=== PATIENT | female | born 1965 | race Caucasian/White ===

== ENCOUNTER 2021-05-29 11:57 | Inpatient (IN) | payer OTHER ==
[~2021-05-29] VITALS: Ht 149.9 cm; Wt 81.6 kg
[2021-05-29] MEDS ORDERED: ONDANSETRON HCL INJ 2MG/ML 2ML 2 MG/ML VIAL IV STA ×2 (12:06→16:54)
[2021-05-29] MEDS ORDERED: SODIUM CHLORIDE 0.9% 1000ML 2,500 ML IV SCH (12:15)
[2021-05-29 12:18] LABS: BASOPHILS # (AUTO) 0.1 (0.0-0.1); BASOPHILS % 0.3 % (0.0-1.0); HEMATOCRIT 29.4 % (34.2-44.1); HEMOGLOBIN 9.4 g/dL (12.0-16.0); LYMPHOCYTES # (AUTO) 2.7 (1.0-3.2); LYMPHOCYTES % 14.3 % (18.0-39.1); MEAN CORPUSCULAR HEMOGLOBIN 29.7 pg (28-32); MONOCYTES # (AUTO) 0.5 (0.2-0.8); MONOCYTES % 2.9 % (4.4-11.3); NEUTROPHILS # (AUTO) 15.4 (2.1-6.9); NEUTROPHILS % 81.7 % (38.7-80.0); PLATELET COUNT 322 x10e3/uL (140-360); RED BLOOD COUNT 3.16 x10e6/uL (3.6-5.1); RED CELL DISTRIBUTION WIDTH 13.2 % (11.7-14.4)
[2021-05-29 12:42] LABS: ALBUMIN 3.4 g/dL (3.5-5.0); ALBUMIN/GLOBULIN RATIO 1.3 (0.8-2.0); ANION GAP 18.2 mmol/L (8-16); CALCIUM 8.5 mg/dL (8.4-10.2); CREATININE, SERUM 0.85 mg/dL (0.57-1.11); POTASSIUM 4.2 mmol/L (3.5-5.1)
[2021-05-29] MEDS ORDERED: CEFEPIME 2 GM in SODIUM CHLORIDE 0.9% 100 ML IV ONE (12:45)
[2021-05-29] MEDS ORDERED: Vancomycin IV 1 GM in SODIUM CHLORIDE 0.9% 250ML 250 ML IV ONE (12:45)
[2021-05-29 12:49] LABS: CLARITY,URINE CLEAR (CLEAR); COLOR,URINE YELLOW (YELLOW)
[2021-05-29 12:50] LABS: KETONES,URINE TRACE (NEGATIVE); LEUKOCYTE ESTERASE ,URINE NEGATIVE (NEGATIVE); NITRITE,URINE NEGATIVE (NEGATIVE); PROTEIN,URINE DIPSTICK NEGATIVE (NEGATIVE); URINE UROBILINOGEN 0.2 mg/dL (0.2 - 1)
[2021-05-29 13:02] LABS: BACTERIA,URINE MANY /HPF; EPITHELIAL CELLS,URINE FEW /LPF
[2021-05-29] MEDS ORDERED: IOPAMIDOL 370 MG/ML 200 ML INFUS..BTL INJ ONE (14:19)
[2021-05-29] MEDS ORDERED: SODIUM CHLORIDE 0.9% 50ML 50 ML ONE (14:19)
[2021-05-29] MEDS ORDERED: KETOROLAC TROMETHAMINE 30 MG/ML VIAL IV STA (14:33)
[2021-05-29] MEDS ORDERED: FENTANYL CITRATE/PF 100MCG/2 ML INJ IV ONE (17:00)
[2021-05-29] MEDS ORDERED: MORPHINE SULFATE INJ 4 MG/ML INJ 1ML IV ONE (17:00)
[2021-05-29 18:48] VITALS: BP 104/57
[2021-05-29 19:55] VITALS: BP 104/57
[2021-05-29 20:00] VITALS: BP 101/56
[2021-05-29 20:30] VITALS: BP 101/56
[2021-05-29] MEDS ORDERED: METOPROLOL TARTRATE 25 MG TAB PO SCH (21:00)
[2021-05-29] MEDS ORDERED: Vancomycin IV 1.25 GM in SODIUM CHLORIDE 0.9% 250ML 250 ML IV SCH (21:30)
[2021-05-29] MEDS: SODIUM CHLORIDE 0.9% 1000ML 1,000 ML IV SCH (21:42)
[2021-05-29] MEDS: MEROPENEM 500 MG in SODIUM CHLORIDE 0.9% 50ML 50 ML IV SCH (21:42)
[2021-05-29] MEDS: Pantoprazole IV 40 MG in SODIUM CHLORIDE 0.9% 50ML 50 ML IV SCH (21:45)
[2021-05-29] MEDS: MIDODRINE HCL 5 MG TABLET PO SCH (21:45)
[2021-05-30] VITALS (9 sets, daily range): BP systolic 84–124; BP diastolic 39–99
[2021-05-30 00:22] LABS: % IRON SATURATION 91 % (15-50); IRON 232 ug/dL (50-170); TOTAL IRON BINDING CAPACITY 256 ug/dL (261-478); TRANSFERRIN 183 mg/dL (180-382)
[2021-05-30] MEDS ORDERED: DICYCLOMINE HCL 20 MG TAB PO ONE (01:15)
[2021-05-30] MEDS ORDERED: DIPHENOXYLATE/ATROPINE TAB PO ONE (01:15)
[2021-05-30] MEDS: Pantoprazole IV 40 MG in SODIUM CHLORIDE 0.9% 50ML 50 ML IV SCH ×5 (01:45→21:45)
[2021-05-30] MEDS ORDERED: Vancomycin IV 1 GM in SODIUM CHLORIDE 0.9% 250ML 250 ML IV SCH (02:00)
[2021-05-30] MEDS ORDERED: Vancomycin IV 1.25 GM in SODIUM CHLORIDE 0.9% 250ML 250 ML IV SCH (02:00)
[2021-05-30] MEDS ORDERED: VANCOMYCIN HCL 1GM/NS 250 ML BAG IV SCH (02:15)
[2021-05-30] MEDS ORDERED: METOCLOPRAMIDE HCL 10 MG/2ML VIAL IV STA (02:21)
[2021-05-30] MEDS: SODIUM CHLORIDE 0.9% 1000ML 1,000 ML IV SCH ×4 (06:42→22:00)
[2021-05-30] MEDS ORDERED: SODIUM CHLORIDE 0.9% 500ML 500 ML IV ONE ×2 (10:41→10:45)
[2021-05-30] MEDS: MIDODRINE HCL 5 MG TABLET PO SCH ×3 (10:57→16:00)
[2021-05-30] MEDS: DICYCLOMINE HCL 20 MG TAB PO SCH ×3 (10:57→23:00)
[2021-05-30] MEDS: METOCLOPRAMIDE HCL 10 MG/2ML VIAL IV SCH ×3 (10:57→22:00)
[2021-05-30] MEDS: MEROPENEM 500 MG in SODIUM CHLORIDE 0.9% 50ML 50 ML IV SCH ×2 (10:57→23:00)
[2021-05-30 13:44] LABS: BASOPHILS % 0.3 % (0.0-1.0); EOSINOPHILS # (AUTO) 0.1 (0.0-0.4); EOSINOPHILS % 0.7 % (0.0-6.0); LYMPHOCYTES # (AUTO) 2.9 (1.0-3.2); LYMPHOCYTES % 25.5 % (18.0-39.1); MEAN CORPUSCULAR HEMOGLOBIN 30.4 pg (28-32); MEAN CORPUSCULAR HGB CONC 31.4 g/dL (31-35); MEAN CORPUSCULAR VOLUME 96.9 fL (81-99); MONOCYTES # (AUTO) 0.6 (0.2-0.8); MONOCYTES % 4.9 % (4.4-11.3); NEUTROPHILS # (AUTO) 7.8 (2.1-6.9); PLATELET COUNT 187 x10e3/uL (140-360); RED BLOOD COUNT 1.61 x10e6/uL (3.6-5.1); RED CELL DISTRIBUTION WIDTH 14.5 % (11.7-14.4)
[2021-05-30 13:54] LABS: HEMATOCRIT 15.6 % (34.2-44.1); HEMOGLOBIN 4.9 g/dL (12.0-16.0)
[2021-05-30] MEDS ORDERED: SODIUM CHLORIDE 0.9% 1000ML 1,000 ML IV ONE (14:15)
[2021-05-30] MEDS ORDERED: SODIUM CHLORIDE 0.9% 250ML 250 ML IV ONE (14:15)
[2021-05-30 15:13] LABS: HEMATOCRIT 15.6 % (34.2-44.1); HEMOGLOBIN 4.8 g/dL (12.0-16.0)
[2021-05-30 15:18] LABS: INR 1.15; PROTHROMBIN TIME 14.9 seconds (11.9-14.5)
[2021-05-30 15:46] LABS: ANION GAP 10.9 mmol/L (8-16); CALCIUM 8.1 mg/dL (8.4-10.2); CREATININE, SERUM 0.82 mg/dL (0.57-1.11); POTASSIUM 3.9 mmol/L (3.5-5.1)
[2021-05-30] MEDS ORDERED: NOREPINEPHRINE 8 MG/D5W 250 ML 250 ML ONE (20:09)
[2021-05-30] MEDS: ONDANSETRON HCL INJ 2MG/ML 2ML 2 MG/ML VIAL IV PRN (22:00)
[2021-05-31] VITALS (31 sets, daily range): BP systolic 85–136; BP diastolic 36–96
[2021-05-31 00:18] LABS: HEMOGLOBIN 6.9 g/dL (12.0-16.0)
[2021-05-31 00:32] LABS: ANION GAP 11.2 mmol/L (8-16); CALCIUM 7.7 mg/dL (8.4-10.2); CREATININE, SERUM 0.77 mg/dL (0.57-1.11); POTASSIUM 4.2 mmol/L (3.5-5.1)
[2021-05-31] MEDS: ACETAMINOPHEN 325 MG TAB PO PRN ×2 (01:17→10:22)
[2021-05-31] MEDS: SODIUM CHLORIDE 0.9% 1000ML 1,000 ML IV SCH ×7 (02:00→15:14)
[2021-05-31] MEDS: Pantoprazole IV 40 MG in SODIUM CHLORIDE 0.9% 50ML 50 ML IV SCH ×5 (02:45→23:55)
[2021-05-31] MEDS: DICYCLOMINE HCL 20 MG TAB PO SCH ×4 (03:00→20:28)
[2021-05-31] MEDS: METOCLOPRAMIDE HCL 10 MG/2ML VIAL IV SCH ×4 (03:00→20:28)
[2021-05-31 04:31] LABS: HEMATOCRIT 25.3 % (34.2-44.1); HEMOGLOBIN 8.1 g/dL (12.0-16.0)
[2021-05-31] MEDS: ONDANSETRON HCL INJ 2MG/ML 2ML 2 MG/ML VIAL IV PRN ×2 (06:04→13:29)
[2021-05-31] MEDS: HYDROCODONE/APAP 5MG-325MG TAB PO PRN ×2 (06:04→13:29)
[2021-05-31] MEDS: MIDODRINE HCL 5 MG TABLET PO SCH ×3 (08:02→15:11)
[2021-05-31] MEDS: MEROPENEM 500 MG in SODIUM CHLORIDE 0.9% 50ML 50 ML IV SCH (08:10)
[2021-05-31 13:38] LABS: HEMATOCRIT 24.3 % (34.2-44.1); HEMOGLOBIN 7.7 g/dL (12.0-16.0)
[2021-05-31 17:49] LABS: HEMATOCRIT 25.9 % (34.2-44.1); HEMOGLOBIN 8.1 g/dL (12.0-16.0)
[2021-06-01] VITALS (25 sets, daily range): BP systolic 108–147; BP diastolic 53–80
[2021-06-01] MEDS: SODIUM CHLORIDE 0.9% 1000ML 1,000 ML IV SCH ×3 (02:24→18:45)
[2021-06-01] MEDS: METOCLOPRAMIDE HCL 10 MG/2ML VIAL IV SCH ×4 (02:29→19:41)
[2021-06-01] MEDS: DICYCLOMINE HCL 20 MG TAB PO SCH ×4 (02:29→19:41)
[2021-06-01] MEDS: Pantoprazole IV 40 MG in SODIUM CHLORIDE 0.9% 50ML 50 ML IV SCH ×4 (03:50→18:45)
[2021-06-01 05:29] LABS: BASOPHILS % 0.4 % (0.0-1.0); EOSINOPHILS # (AUTO) 0.1 (0.0-0.4); EOSINOPHILS % 1.5 % (0.0-6.0); MEAN CORPUSCULAR HEMOGLOBIN 30.4 pg (28-32); MEAN CORPUSCULAR HGB CONC 31.1 g/dL (31-35); MEAN CORPUSCULAR VOLUME 97.6 fL (81-99); MONOCYTES # (AUTO) 0.3 (0.2-0.8); MONOCYTES % 5.8 % (4.4-11.3); NEUTROPHILS # (AUTO) 3.4 (2.1-6.9); NEUTROPHILS % 71.3 % (38.7-80.0); PLATELET COUNT 77 x10e3/uL (140-360); RED BLOOD COUNT 1.68 x10e6/uL (3.6-5.1); RED CELL DISTRIBUTION WIDTH 14.3 % (11.7-14.4)
[2021-06-01 05:34] LABS: HEMATOCRIT 16.4 % (34.2-44.1); HEMOGLOBIN 5.1 g/dL (12.0-16.0)
[2021-06-01 06:19] LABS: BASOPHILS % 0.6 % (0.0-1.0); EOSINOPHILS # (AUTO) 0.1 (0.0-0.4); EOSINOPHILS % 1.2 % (0.0-6.0); HEMATOCRIT 23.9 % (34.2-44.1); HEMOGLOBIN 7.7 g/dL (12.0-16.0); LYMPHOCYTES # (AUTO) 1.3 (1.0-3.2); LYMPHOCYTES % 19.8 % (18.0-39.1); MEAN CORPUSCULAR HEMOGLOBIN 30.2 pg (28-32); MEAN CORPUSCULAR HGB CONC 32.2 g/dL (31-35); MEAN CORPUSCULAR VOLUME 93.7 fL (81-99); MONOCYTES # (AUTO) 0.4 (0.2-0.8); MONOCYTES % 5.6 % (4.4-11.3); NEUTROPHILS # (AUTO) 4.7 (2.1-6.9); NEUTROPHILS % 71.9 % (38.7-80.0); PLATELET COUNT 105 x10e3/uL (140-360); RED BLOOD COUNT 2.55 x10e6/uL (3.6-5.1); RED CELL DISTRIBUTION WIDTH 14.1 % (11.7-14.4)
[2021-06-01 06:38] LABS: ALBUMIN 2.8 g/dL (3.5-5.0); ALBUMIN/GLOBULIN RATIO 1.3 (0.8-2.0); ANION GAP 10.5 mmol/L (8-16); CALCIUM 7.8 mg/dL (8.4-10.2); CREATININE, SERUM 0.69 mg/dL (0.57-1.11); MAGNESIUM 1.9 MG/DL (1.3-2.1); PHOSPHORUS 3.1 MG/DL (2.3-4.7); POTASSIUM 3.5 mmol/L (3.5-5.1)
[2021-06-01] MEDS: MIDODRINE HCL 5 MG TABLET PO SCH ×3 (07:59→16:00)
[2021-06-01] MEDS ORDERED: ACETAMINOPHEN 650 MG SUPP PR PRN (09:45)
[2021-06-01] MEDS: HYDROCODONE/APAP 5MG-325MG TAB PO PRN (19:42)
[2021-06-01] MEDS: ONDANSETRON HCL INJ 2MG/ML 2ML 2 MG/ML VIAL IV PRN (19:42)
[2021-06-02] VITALS (14 sets, daily range): BP systolic 110–155; BP diastolic 48–80
[2021-06-02] MEDS: METOCLOPRAMIDE HCL 10 MG/2ML VIAL IV SCH ×4 (02:15→21:35)
[2021-06-02] MEDS: DICYCLOMINE HCL 20 MG TAB PO SCH ×4 (02:15→21:34)
[2021-06-02] MEDS: Pantoprazole IV 40 MG in SODIUM CHLORIDE 0.9% 50ML 50 ML IV SCH ×5 (02:15→21:35)
[2021-06-02] MEDS: SODIUM CHLORIDE 0.9% 1000ML 1,000 ML IV SCH ×2 (05:29→13:32)
[2021-06-02 05:43] LABS: BASOPHILS % 0.4 % (0.0-1.0); EOSINOPHILS # (AUTO) 0.2 (0.0-0.4); EOSINOPHILS % 4.6 % (0.0-6.0); HEMATOCRIT 23.5 % (34.2-44.1); HEMOGLOBIN 7.6 g/dL (12.0-16.0); LYMPHOCYTES # (AUTO) 1.1 (1.0-3.2); MEAN CORPUSCULAR HEMOGLOBIN 30.5 pg (28-32); MEAN CORPUSCULAR HGB CONC 32.3 g/dL (31-35); MEAN CORPUSCULAR VOLUME 94.4 fL (81-99); MONOCYTES # (AUTO) 0.3 (0.2-0.8); MONOCYTES % 6.3 % (4.4-11.3); NEUTROPHILS # (AUTO) 3.1 (2.1-6.9); NEUTROPHILS % 64.7 % (38.7-80.0); PLATELET COUNT 134 x10e3/uL (140-360); RED BLOOD COUNT 2.49 x10e6/uL (3.6-5.1); RED CELL DISTRIBUTION WIDTH 13.9 % (11.7-14.4)
[2021-06-02 07:15] LABS: ALBUMIN 2.9 g/dL (3.5-5.0); ALBUMIN/GLOBULIN RATIO 1.5 (0.8-2.0); ANION GAP 10.1 mmol/L (8-16); CALCIUM 7.8 mg/dL (8.4-10.2); CREATININE, SERUM 0.7 mg/dL (0.57-1.11); POTASSIUM 3.1 mmol/L (3.5-5.1)
[2021-06-02] MEDS: MIDODRINE HCL 5 MG TABLET PO SCH ×3 (09:37→16:50)
[2021-06-02] MEDS ORDERED: POTASSIUM CHLORIDE 20 MEQ TAB CR PO NR (13:30)
[2021-06-02] MEDS: SUCRALFATE 1 GM/10 ML SUSP NG SCH ×2 (16:50→21:34)
[2021-06-02] MEDS: HYDROCODONE/APAP 5MG-325MG TAB PO PRN (21:34)
[2021-06-03] VITALS (7 sets, daily range): BP systolic 130–147; BP diastolic 69–77
[2021-06-03] MEDS: METOCLOPRAMIDE HCL 10 MG/2ML VIAL IV SCH ×4 (02:30→20:54)
[2021-06-03] MEDS: Pantoprazole IV 40 MG in SODIUM CHLORIDE 0.9% 50ML 50 ML IV SCH (02:30)
[2021-06-03] MEDS: SODIUM CHLORIDE 0.9% 1000ML 1,000 ML IV SCH (02:30)
[2021-06-03] MEDS: DICYCLOMINE HCL 20 MG TAB PO SCH ×4 (02:36→20:54)
[2021-06-03] MEDS: HYDROCODONE/APAP 5MG-325MG TAB PO PRN ×2 (02:56→20:54)
[2021-06-03] MEDS: SUCRALFATE 1 GM/10 ML SUSP NG SCH ×4 (05:41→20:54)
[2021-06-03 06:23] LABS: BASOPHILS % 0.5 % (0.0-1.0); EOSINOPHILS # (AUTO) 0.2 (0.0-0.4); HEMATOCRIT 23.8 % (34.2-44.1); HEMOGLOBIN 7.5 g/dL (12.0-16.0); LYMPHOCYTES # (AUTO) 0.8 (1.0-3.2); LYMPHOCYTES % 19.3 % (18.0-39.1); MEAN CORPUSCULAR HEMOGLOBIN 29.9 pg (28-32); MEAN CORPUSCULAR HGB CONC 31.5 g/dL (31-35); MEAN CORPUSCULAR VOLUME 94.8 fL (81-99); MONOCYTES # (AUTO) 0.4 (0.2-0.8); MONOCYTES % 8.3 % (4.4-11.3); NEUTROPHILS # (AUTO) 2.8 (2.1-6.9); NEUTROPHILS % 65.5 % (38.7-80.0); PLATELET COUNT 156 x10e3/uL (140-360); RED BLOOD COUNT 2.51 x10e6/uL (3.6-5.1); RED CELL DISTRIBUTION WIDTH 14.7 % (11.7-14.4)
[2021-06-03] MEDS ORDERED: Pantoprazole IV 40 MG in SODIUM CHLORIDE 0.9% 50ML 50 ML IV SCH (07:30)
[2021-06-03 07:35] LABS: ANION GAP 10.4 mmol/L (8-16); CALCIUM 8.2 mg/dL (8.4-10.2); CREATININE, SERUM 0.66 mg/dL (0.57-1.11); POTASSIUM 3.4 mmol/L (3.5-5.1)
[2021-06-03] MEDS: MIDODRINE HCL 5 MG TABLET PO SCH (08:53)
[2021-06-03] MEDS: ACETAMINOPHEN 325 MG TAB PO PRN (09:12)
[2021-06-03] MEDS ORDERED: SODIUM CHLORIDE 0.9% 250ML 250 ML IV ONE (10:15)
[2021-06-03] MEDS ORDERED: POTASSIUM CHLORIDE 20 MEQ TAB CR PO ONE ×3 (11:45→17:45)
[2021-06-03] MEDS: FUROSEMIDE INJ 10 MG/ML 4 ML VIAL IV SCH ×2 (12:26→18:05)
[2021-06-03] MEDS ORDERED: SODIUM CHLORIDE 0.9% 250ML 250 ML ONE (14:33)
[2021-06-03] MEDS: PANTOPRAZOLE SOD 40 MG TABEC PO SCH (16:47)
[2021-06-04] VITALS: BP 137/80
[2021-06-04] MEDS: METOCLOPRAMIDE HCL 10 MG/2ML VIAL IV SCH ×3 (01:29→13:54)
[2021-06-04] MEDS: DICYCLOMINE HCL 20 MG TAB PO SCH ×3 (01:29→13:43)
[2021-06-04] MEDS: ACETAMINOPHEN 325 MG TAB PO PRN ×2 (01:43→08:51)
[2021-06-04 04:00] VITALS: BP 147/76
[2021-06-04] MEDS: FUROSEMIDE INJ 10 MG/ML 4 ML VIAL IV SCH (05:58)
[2021-06-04] MEDS: PANTOPRAZOLE SOD 40 MG TABEC PO SCH (05:59)
[2021-06-04] MEDS: SUCRALFATE 1 GM/10 ML SUSP NG SCH ×2 (05:59→10:52)
[2021-06-04 06:17] LABS: BASOPHILS % 0.5 % (0.0-1.0); EOSINOPHILS # (AUTO) 0.3 (0.0-0.4); EOSINOPHILS % 3.8 % (0.0-6.0); HEMATOCRIT 29.7 % (34.2-44.1); HEMOGLOBIN 9.6 g/dL (12.0-16.0); LYMPHOCYTES % 15.7 % (18.0-39.1); MEAN CORPUSCULAR HEMOGLOBIN 30.1 pg (28-32); MEAN CORPUSCULAR HGB CONC 32.3 g/dL (31-35); MEAN CORPUSCULAR VOLUME 93.1 fL (81-99); MONOCYTES # (AUTO) 0.6 (0.2-0.8); MONOCYTES % 9.7 % (4.4-11.3); NEUTROPHILS # (AUTO) 4.5 (2.1-6.9); NEUTROPHILS % 69.2 % (38.7-80.0); PLATELET COUNT 179 x10e3/uL (140-360); RED BLOOD COUNT 3.19 x10e6/uL (3.6-5.1); RED CELL DISTRIBUTION WIDTH 14.5 % (11.7-14.4)
[2021-06-04 07:55] VITALS: BP 132/76
[2021-06-04 08:06] VITALS: BP 132/76
[2021-06-04] MEDS ORDERED: FUROSEMIDE INJ 10 MG/ML 4 ML VIAL IV ONE (11:00)
[2021-06-04 11:30] VITALS: BP 122/74
[2021-06-04 11:44] LABS: ANION GAP 15.3 mmol/L (8-16); CALCIUM 9.1 mg/dL (8.4-10.2); CREATININE, SERUM 0.76 mg/dL (0.57-1.11); POTASSIUM 3.3 mmol/L (3.5-5.1)
[2021-06-04] MEDS ORDERED: POTASSIUM CHLORIDE 20 MEQ TAB CR PO STA (12:53)
[2021-06-04] MEDS ORDERED: ONDANSETRON HCL 4 MG ORAL DISINTEGRATING TAB PO PRN (13:00)
[2021-06-04] MEDS ORDERED: PANTOPRAZOLE SO40 MG PO (13:46)
[2021-06-04] MEDS ORDERED: CARAFATE1 GM PO (13:46)
== END 2021-06-04 14:26 | disposition home or self-care (01) | DRG 377 ==
LOC: ER 12:10 → ERHOLD 15:27 → MED/SURG2 18:30 → ICU 05-31 05:00 → MED/SURG2 06-02 10:42
PROVIDERS: ADMIT Internal Medicine; ATTEND Internal Medicine
PROC: 02HV33Z Insertion of Infusion Device into Superior Vena Cava, Percutaneous Approach (ICD-10-PCS; 2021-05-29)
PROC: 30243N1 Transfusion of Nonautologous Red Blood Cells into Central Vein, Percutaneous Approach (ICD-10-PCS; 2021-05-30)
PROC: 0DB18ZX Excision of Upper Esophagus, Via Natural or Artificial Opening Endoscopic, Diagnostic (ICD-10-PCS; 2021-06-01)
PROC: 0DB68ZX Excision of Stomach, Via Natural or Artificial Opening Endoscopic, Diagnostic (ICD-10-PCS; principal; 2021-06-01 13:30)
DX: K25.0 Acute gastric ulcer with hemorrhage (principal); R57.1 Hypovolemic shock; K20.91 Esophagitis, unspecified with bleeding; J18.9 Pneumonia, unspecified organism; J81.1 Chronic pulmonary edema; D62 Acute posthemorrhagic anemia; N39.0 Urinary tract infection, site not specified; J44.0 Chronic obstructive pulmonary disease with (acute) lower respiratory infection; E87.2 Acidosis; K20.90 Esophagitis, unspecified without bleeding; K22.70 Barrett's esophagus without dysplasia; K44.9 Diaphragmatic hernia without obstruction or gangrene; K29.70 Gastritis, unspecified, without bleeding; D64.9 Anemia, unspecified; E66.01 Morbid (severe) obesity due to excess calories; Z20.822 Contact with and (suspected) exposure to COVID-19; Z68.36 Body mass index [BMI] 36.0-36.9, adult; E83.51 Hypocalcemia; Z87.891 Personal history of nicotine dependence; E78.5 Hyperlipidemia, unspecified
CPT/HCPCS: 36415; 36569; 43239; 71045; 71260; 74177; 80048; 80053; 80202; 81001; 82607; 82728; 82746; 83540; 83605; 83690; 83735; 83993; 84100; 84466; 84484; 85014; 85018; 85025; 85045; 85610; 86850; 86900; 86920; 87040; 87045; 87177; 87493; 88305; 88312; 93005; 96361; 99285; J0692; J1885; J1940; J2185; J2405; J2765; J3010; J3370; J7030; J7050; P9016; Q9967; U0002